=== PATIENT | female | born 1980 | race Caucasian/White ===

== ENCOUNTER → 2018-04-17 | Outpatient (CLI) | payer OTHER | LOC: FIMAGING 09:51 | PROVIDERS: ATTEND Obstetrics & Gynecology | DX: O09.522 Supervision of elderly multigravida, second trimester (principal); O36.8920 Maternal care for other specified fetal problems, second trimester, not applicable or unspecified; Z3A.22 22 weeks gestation of pregnancy ==

== ENCOUNTER → 2018-06-21 | Outpatient (CLI) | payer OTHER | LOC: FIMAGING 09:58 | PROVIDERS: ATTEND Midwife | DX: O09.523 Supervision of elderly multigravida, third trimester (principal); O36.5930 Maternal care for other known or suspected poor fetal growth, third trimester, not applicable or unspecified; O99.283 Endocrine, nutritional and metabolic diseases complicating pregnancy, third trimester; O24.419 Gestational diabetes mellitus in pregnancy, unspecified control; Z3A.32 32 weeks gestation of pregnancy ==

== ENCOUNTER → 2018-07-19 | Outpatient (CLI) | payer OTHER | LOC: FIMAGING 09:27 | PROVIDERS: ATTEND Student in an Organized Health Care Education/Training Program | DX: O24.414 Gestational diabetes mellitus in pregnancy, insulin controlled (principal); O14.93 Unspecified pre-eclampsia, third trimester; Z3A.36 36 weeks gestation of pregnancy ==